=== PATIENT | female | born 1990 | race Caucasian/White ===

== ENCOUNTER 2018-06-23 11:45 | Emergency (ER) | payer SELFPAY ==
--- NOTE | 2018-06-23 12:05 | ER Document Report ---
ED Medical Screen (RME) - General Chief Complaint: Flank Pain Stated Complaint: ABDOMINAL PAIN Time Seen by Provider: 06/23/18 11:59 Notes: 27-year-old female patient emergency department chief complaint of right flank pain. Hurts in the suprapubic area and radiates to the right flank. No fever, chills, sweats or other issues at this time. Denies any significant vaginal discharge. No prior history of kidney stone. Sometimes it hurts around her bellybutton as well. I have greeted and performed a rapid initial assessment of this patient. A comprehensive ED assessment and evaluation of the patient, analysis of test results and completion of the medical decision making process will be conducted by additional ED providers. TRAVEL OUTSIDE OF THE [place] IN LAST 30 DAYS: No - Related Data Allergies/Adverse Reactions: No Known Allergies Allergy (Verified 06/23/18 11:46) Past Medical History Renal/ Medical History: Reports: Hx Ovarian Cysts. Denies: Hx Peritoneal Dialysis Musculoskeltal Medical History: Reports Hx Musculoskeletal Trauma - Immunizations Immunizations up to date: Yes Hx Diphtheria, Pertussis, Tetanus Vaccination: Yes Physical Exam - Vital signs Vitals: Temp Pulse Resp BP Pulse Ox 98.2 F 75 18 145/84 H 100 06/23/18 11:56 06/23/18 11:56 06/23/18 11:56 06/23/18 11:56 06/23/18 11:56 - Notes Notes: Tenderness suprapubic area and lower pelvic region and right lower quadrant. No guarding or rebound. Course - Vital Signs Vital signs: Temp Pulse Resp BP Pulse Ox 98.2 F 75 18 145/84 H 100 06/23/18 11:56 06/23/18 11:56 06/23/18 11:56 06/23/18 11:56 06/23/18 11:56
[2018-06-23 12:42] LABS: AMORPHOUS SEDIMENT,URINE TRACE /HPF; APPEARANCE,URINE SLIGHTLY-CLOUDY; BILIRUBIN,URINE NEGATIVE (NEGATIVE); COLOR,URINE STRAW; GLUCOSE, URINE NEGATIVE (NEGATIVE); KETONES,URINE NEGATIVE (NEGATIVE); LEUKOCYTE ESTERASE,URINE NEGATIVE (NEGATIVE); NITRITE,URINE NEGATIVE (NEGATIVE); PROTEIN,URINE NEGATIVE (NEGATIVE); URINE SPECIFIC GRAVITY 1.003; UROBILINOGEN,URINE NEGATIVE mg/dL (<2.0)
--- NOTE | 2018-06-23 14:32 | ER Document Report ---
ED GI/ - General Chief Complaint: Flank Pain Stated Complaint: ABDOMINAL PAIN Time Seen by Provider: 06/23/18 11:59 Primary Care Provider: [facility] [Provider Group] - Follow up as needed Mode of Arrival: Ambulatory Information source: Patient Notes: 27-year-old female presents to ED for complaint of right lower quadrant abdominal pain that started yesterday. She states that the pain radiates around to the right lower back. She denies any burning with urine any urgency frequency with urine. She denies any nausea vomiting fever or diarrhea. She has no blood in stool or urine. Patient does have a history of a right ovarian cyst. Patient is alert oriented respirations regular and unlabored speaking in full sentences and walks with a even steady gait. Patient is in no acute distress and on exam. She does have right pelvic tenderness to palpation. States her last menstrual period was June 14 TRAVEL OUTSIDE OF THE [place] IN LAST 30 DAYS: No - HPI Patient complains to provider of: Pelvic pain Onset: Yesterday Timing/Duration: Gradual Quality of pain: Sharp Severity at maximum: Moderate Severity in ED: Moderate Pain Level: 3 Location: Low back - Right right, Pelvis Vaginal bleeding (Compared to normal period): None Associated symptoms: Radiates to back. denies: Blood in stool, Constipation, Diarrhea, Fever, Nausea, Urinary hesitancy, Urinary frequency, Urinary retention, Urinary urgency, Vaginal discharge, Vomiting Exacerbated by: Denies Relieved by: Denies Similar symptoms previously: Yes Recently seen / treated by doctor: No - Related Data Allergies/Adverse Reactions: No Known Allergies Allergy (Verified 06/23/18 14:20) Past Medical History - General Information source: Patient - Social History Smoking Status: Current Every Day Smoker Cigarette use (# per day): Yes - 20 Chew tobacco use (# tins/day): No Smoking Education Provided: Yes - 4 min Frequency of alcohol use: Social Drug Abuse: None Family History: Arthritis, CVA, Hypertension, Malignancy. denies: CAD, COPD, DM, Hyperlipidemia, Thyroid Disfunction Patient has suicidal ideation: No Patient has homicidal ideation: No - Past Medical History Cardiac Medical History: Reports: None Pulmonary Medical History: Reports: None EENT Medical History: Reports: None Neurological Medical History: Reports: None Endocrine Medical History: Reports: None Renal/ Medical History: Reports: Hx Ovarian Cysts. Denies: Hx Peritoneal Dialysis Malignancy Medical History: Reports: None GI Medical History: Reports: None Musculoskeletal Medical History: Reports Hx Musculoskeletal Trauma Skin Medical History: Reports None Psychiatric Medical History: Reports: None Traumatic Medical History: Reports: None Infectious Medical History: Reports: None Surgical Hx: Negative Past Surgical History: Reports: None - Immunizations Immunizations up to date: Yes Hx Diphtheria, Pertussis, Tetanus Vaccination: Yes Review of Systems - Review of Systems Constitutional: No symptoms reported EENT: No symptoms reported Cardiovascular: No symptoms reported Respiratory: No symptoms reported Gastrointestinal: No symptoms reported Genitourinary: No symptoms reported Female Genitourinary: No symptoms reported Musculoskeletal: No symptoms reported Skin: No symptoms reported Hematologic/Lymphatic: No symptoms reported Neurological/Psychological: No symptoms reported -: Yes All other systems reviewed and negative Physical Exam - Vital signs Vitals: Temp Pulse Resp BP Pulse Ox 98.2 F 75 18 145/84 H 100 06/23/18 11:56 06/23/18 11:56 06/23/18 11:56 06/23/18 11:56 06/23/18 11:56 Interpretation: Normal - General General appearance: Appears well, Alert - HEENT Head: Normocephalic, Atraumatic Eyes: Normal Pupils: PERRL - Respiratory Respiratory status: No respiratory distress Chest status: Nontender Breath sounds: Normal Chest palpation: Normal - Cardiovascular Rhythm: Regular Heart sounds: Normal auscultation Murmur: No - Abdominal Inspection: Normal Distension: No distension Bowel sounds: Normal Tenderness: Tender Organomegaly: No organomegaly - Back Back: Normal, Nontender - Extremities General upper extremity: Normal inspection, Nontender, Normal color, Normal ROM, Normal temperature General lower extremity: Normal inspection, Nontender, Normal color, Normal ROM, Normal temperature, Normal weight bearing. No: Desmond's sign - Neurological Neuro grossly intact: Yes Cognition: Normal Orientation: AAOx4 [place] Coma Scale Eye Opening: Spontaneous [place] Coma Scale Verbal: Oriented [place] Coma Scale Motor: Obeys Commands [place] Coma Scale Total: 15 Speech: Normal Motor strength normal: LUE, RUE, LLE, RLE Sensory: Normal - Psychological Associated symptoms: Normal affect, Normal mood - Skin Skin Temperature: Warm Skin Moisture: Dry Skin Color: Normal Course - Re-evaluation Re-evalutation: 06/23/18 21:24 Discussed x-rays and ultrasound with patient and written report of x-rays and ultrasound given to patient to follow-up with primary doctor. Patient was recommended use of ibuprofen until she follows up with [facility]. - Vital Signs Vital signs: Temp Pulse Resp BP Pulse Ox 98.3 F 68 16 141/89 H 100 06/23/18 18:14 06/23/18 18:14 06/23/18 18:14 06/23/18 18:14 06/23/18 18:14 - Laboratory Result Diagrams: 06/23/18 14:40 06/23/18 14:40 Laboratory results interpreted by me: 06/23/18 14:40 BUN 6 L - Diagnostic Test Radiology reviewed: Image reviewed, Reports reviewed Discharge - Discharge Clinical Impression: Right ovarian cyst, Bacterial vaginosis Condition: Stable Disposition: HOME, SELF-CARE Additional Instructions: VAGINOSIS, BACTERIAL: Your exam shows you have bacterial vaginosis. This condition is due to an overgrowth of bacteria in the vagina. Symptoms may include vaginal itching or pain, a smelly discharge, and sometimes burning with urination. Normally this is not transmitted by sexual contact. Vaginosis can be treated with oral or topical antibiotics. Metronidazole (Flagyl) pills are usually effective. Topical vaginal creams include Cleocin and Metro-Gel. You should avoid sexual contact until your symptoms are all better. Call the doctor if you develop pelvic pain, fever, or problems with urination, or if you don't improve as expected. Ovarian Cyst Your examination shows the presence of an ovarian cyst. This is a ball of fluid attached to the ovary. Ovarian cysts in women of child-bearing age are usually innocent. However, the cyst may cause pain when it grows or bursts. An innocent ovarian cyst will usually go away by itself. When the cyst becomes painful, you should rest. Pain medication may be required. Some women find a hot water bottle soothing. The pain usually resolves within one or two days. After menopause, an ovarian cyst may mean a tumor, and requires more aggressive evaluation -- usually surgery is recommended to remove or biopsy the cyst. A very large cyst requires evaluation at any age. Most cysts (even the innocent ones) require follow-up examination. Call the doctor or return at any time if the pain increases significantly, if you become faint, or if you experience vaginal bleeding. METRONIDAZOLE: Metronidazole (Flagyl) has been prescribed. This medication is used to kill a type of bacteria called anaerobes, and protozoan parasites such as trichomonas and Giardia. Flagyl often causes a metallic taste in the mouth and mild nausea. Do not use alcohol in any form with Flagyl (including alcohol in medication elixirs). Flagyl interacts with alcohol to cause flushing, palpitations, headache, stomach cramps, and vomiting. Do not use Flagyl if you are taking Antabuse (disulfiram). Call the doctor at once if you develop rash, shortness of breath, itching, or lightheadedness. Ibuprofen Ibuprofen is an excellent, safe drug for pain control. In addition, it has potent antiinflammatory effects which are beneficial, especially in the treatment of injuries, arthritis, or tendonitis. It's best to take ibuprofen with food. Persons with ulcer disease or allergy to aspirin should notify their physician of this before taking ibuprofen. Take the medication exactly as prescribed. Don't take additional doses unless instructed to do so by your doctor. If you develop wheezing, shortness of breath, hives, faintness, stomach pain, vomiting, or dark black stools, r eturn for re-evaluation at once. Warm Packs After approximately two days, apply gentle heat (such as a heating pad or hot water bottle) for about 20 to 30 minutes about every two hours -- at least four times daily. Warmth and elevation will help you make a more rapid recovery, and will ease the pain considerably. Do not use HOT heat, and never apply heat for longer than 30 minutes. The continuous heat can invisibly damage skin and muscles -- even when no burn is seen on the surface. Damaged muscles can make you MORE sore. FOLLOW-UP CARE: If you have been referred to a physician for follow-up care, call the physicians office for an appointment as you were instructed or within the next two days. If you experience worsening or a significant change in your symptoms, notify the physician immediately or return to the Emergency Department at any time for re-evaluation. Prescriptions: Metronidazole [Flagyl 500 mg Tablet] 500 mg PO BID #14 tablet Forms: Elevated Blood Pressure, Smoking Cessation Education, Return to School, Return to Work Referrals: [facility] [Provider Group] - Follow up as needed
[2018-06-23 14:34] LABS: BACTERIA (WET MOUNT) 4+ BACTERIA SEEN; RBCS (WET MOUNT) RARE RBCS SEEN; T.VAGINALIS (WET MOUNT) NO TRICHOMONAS SEEN; WBCS (WET MOUNT) FEW WBCS SEEN; YEAST (WET MOUNT) NO YEAST SEEN
[2018-06-23 14:35] LABS: EPITHELIALS (WET MOUNT) 4+ EPITHELIALS SEEN
[2018-06-23 15:00] LABS: ABSOLUTE EOSINOPHILS # (AUTO) 0.1 10^3/uL (0.0-0.6); ABSOLUTE LYMPHOCYTES (AUTO) 1.2 10^3/uL (0.5-4.7); ABSOLUTE MONOCYTES (AUTO) 0.5 10^3/uL (0.1-1.4); ABSOLUTE NEUT (AUTO) 3.9 10^3/uL (1.7-8.2); BASOPHILS % (AUTO) 0.3 % (0-2); EOSINOPHILS % (AUTO) 1.5 % (0-6); HEMATOCRIT 40.5 % (36.0-47.0); HEMOGLOBIN 13.9 g/dL (12.0-15.5); LYMPHOCYTES % (AUTO) 21.4 % (13-45); MEAN CORPUSCULAR HEMOGLOBIN 31.9 pg (27.0-33.4); MEAN CORPUSCULAR HGB CONC 34.5 g/dL (32.0-36.0); MEAN CORPUSCULAR VOLUME 93 fl (80-97); MONOCYTES % (AUTO) 8.2 % (3-13); PLATELET COUNT 235 10^3/uL (150-450); RED BLOOD COUNT 4.37 10^6/uL (3.72-5.28); RED CELL DISTRIBUTION WIDTH 12.7 % (11.5-14.0); SEGMENTED NEUTROPHILS % (AUTO) 68.6 % (42-78); TOTAL CELLS COUNTED % (AUTO) 100 %; WHITE BLOOD COUNT 5.7 10^3/uL (4.0-10.5)
[2018-06-23 15:16] LABS: ALANINE AMINOTRANSFERASE 29 U/L (9-52); ALBUMIN 4.6 g/dL (3.5-5.0); ALKALINE PHOSPHATASE 90 U/L (38-126); ANION GAP 10 (5-19); ASPARTATE AMINO TRANSFERASE 24 U/L (14-36); BILIRUBIN,DIRECT 0.2 mg/dL (0.0-0.4); BILIRUBIN,TOTAL 0.6 mg/dL (0.2-1.3); BLOOD UREA NITROGEN 6 mg/dL (7-20); CALCIUM 9.9 mg/dL (8.4-10.2); CARBON DIOXIDE 25 mmol/L (22-30); CHLORIDE 104 mmol/L (98-107); GLUCOSE 96 mg/dL (75-110); SODIUM 138.7 mmol/L (137-145); TOTAL PROTEIN 7.4 g/dL (6.3-8.2)
[2018-06-23 16:04] LABS: CHLAM PCR NOT DETECTED (NOT DETECT); GON PCR NOT DETECTED (NOT DETECT)
--- NOTE | 2018-06-23 17:36 | RADIOLOGY REPORT (SQ) ---
EXAM DESCRIPTION: U/S NON-OB PELVIS TV W/O DOP COMPLETED DATE/TIME: 06/23/2018 4:58 pm REASON FOR STUDY: right pelvic pain LMP 06/13/2018 COMPARISON: None. TECHNIQUE: Dynamic and static grayscale images acquired of the pelvis via transvaginal approach and recorded on PACS. Additional selected color Doppler and spectral images recorded. LIMITATIONS: None. FINDINGS: UTERUS: Contour normal. No mass. ENDOMETRIAL STRIPE: No focal or generalized thickening. No masses. CERVIX: No nabothian cysts. 2.3 cm. RIGHT OVARY AND DOPPLER: Normal size. No worrisome masses. Normal arterial vascular flow without evid ence for torsion. There is a small cyst measuring 16 x 17 x 11 mm that is suggestive of a hemorrhagi c cyst. LEFT OVARY AND DOPPLER: Normal size. No worrisome masses. Normal arterial vascular flow without evide nce for torsion. FREE FLUID: None noted. OTHER: No other significant finding. MEASUREMENTS: UTERUS: 6.9 x 4.7 x 3.5 cm. ENDOMETRIAL STRIPE: 8 mm. RIGHT OVARY: 4.2 x 2.5 x 2.8 cm. LEFT OVARY: 2.7 x 2.1 x 1.7 cm. IMPRESSION: There appears to be a small hemorrhagic cyst on the right ovary. No other abnormality i s seen. TECHNICAL DOCUMENTATION: JOB ID: [id number]- All Rights Reserved Rev-09/04 Reading location - IP/workstation name: [email or web address]
[2018-06-23] MEDS ORDERED: IBUPROFEN 600 MG TABLET PO ONE (18:01)
[2018-06-23] MEDS ORDERED: METRONIDAZOLE 500 MG TABLET PO ONE (18:05)
[2018-06-23 18:14] VITALS: BP 141/89
== END 2018-06-23 18:28 | disposition home or self-care (01) ==
LOC: ER 11:45
DX: N83.201 Unspecified ovarian cyst, right side (principal); N76.0 Acute vaginitis; B96.89 Other specified bacterial agents as the cause of diseases classified elsewhere; R10.31 Right lower quadrant pain; R10.2 Pelvic and perineal pain; F17.210 Nicotine dependence, cigarettes, uncomplicated; Z71.6 Tobacco abuse counseling
CPT/HCPCS: 36415; 76830; 80053; 81001; 81025; 84703; 85025; 87210; 87491; 87591; 99284; 99406